=== PATIENT | male | born 1980 | race American Indian/Alaskan Native ===

== ENCOUNTER 2017-06-24 13:46 | Emergency (ER) | payer MEDICAID, OTHER ==
[2017-06-24 14:05] VITALS: BMI 36.3
[2017-06-24 14:06] VITALS: BP 110/81; PULSE 98; RESP 20; TEMP 98.6; O2SAT 100
--- NOTE | 2017-06-24 15:08 | C.PDOC ---
History Of Present Illness Patient is a 37 y/o M presenting with multiple complaints. He reports 1 month history of rib pain thats worse with inspiration, shortness of breath and L knee pain. He reports that his L knee gets "tight" after long drives. He reports that he has not visited his PMD. Denies trauma. Time Seen by Provider: 06/24/17 14:40 Chief Complaint (Nursing): Headache Past Medical History Vital Signs: Last Vital Signs Temp 98.6 F 06/24/17 14:06 Pulse 98 H 06/24/17 14:06 Resp 20 06/24/17 14:06 BP 110/81 06/24/17 14:06 Pulse Ox 100 06/24/17 15:09 - Medical History PMH: Arthritis, Asthma, Bronchitis, Sickle Cell Disease Denies: Depression - [facility] Procedures INJECT/INFUSE NEC (07/19/12) Family History: States: Unknown Family Hx - Social History Hx Tobacco Use: Yes Hx Alcohol Use: Yes (1 beer daily) Hx Substance Use: Yes - Immunization History Hx Tetanus Toxoid Vaccination: No Hx Influenza Vaccination: No Hx Pneumococcal Vaccination: No Review Of Systems Constitutional: Negative for: Fever, Chills Cardiovascular: Positive for: Chest Pain, Other (b/l rib pain) Respiratory: Positive for: Cough, SOB with Excertion, Pleuritic Pain Gastrointestinal: Negative for: Nausea, Vomiting, Abdominal Pain, Constipation Genitourinary: Negative for: Dysuria Musculoskeletal: Negative for: Neck Pain Skin: Negative for: Rash Neurological: Negative for: Weakness, Numbness, Incoordination, Confusion, Seizures, Altered Mental Status, Headache, Dizziness Physical Exam - Physical Exam Appears: Well, Non-toxic, No Acute Distress Head: Atraumatic, Normacephalic Eye(s): bilateral: Normal Inspection, PERRL, EOMI Neck: Supple Chest: Symmetrical Cardiovascular: Rhythm Regular Respiratory: Normal Breath Sounds, No Rales, No Rhonchi, No Wheezing, No Plerual Rub Gastrointestinal/Abdominal: Soft, No Tenderness, No Mass, No Distention Back: Normal Inspection, No CVA Tenderness Extremity: Normal ROM Neurological/Psych: Oriented x3, Normal Cranial Nerves, Normal Motor Gait: Steady ED Course And Treatment O2 Sat by Pulse Oximetry: 100 Medical Decision Making Medical Decision Making: Patient has multiple chronic complaints. He is requesting CT of "my entire body." He has steady gait and normal ROM of L knee- instructed to follow-up with PMD for outpatient MRI. Will get cxray, ekg, and labs. 3:27PM Nurse informed me that patient eloped Disposition - Disposition Disposition: ELOPEMENT - ER ONLY Disposition Time: 15:28 Condition: UNKNOWN Forms: [facility] (Amharic) - Clinical Impression Clinical Impression: Rib pain, Knee pain
== END 2017-06-24 14:40 | disposition left against medical advice (07) ==
LOC: C.ER 13:46
DX: R07.81 Pleurodynia (principal); M25.562 Pain in left knee

== ENCOUNTER 2019-01-16 10:38 | Emergency (ER) | payer MEDICAID, OTHER ==
[2019-01-16 10:38] VITALS: BMI 36.3
[2019-01-16 11:26] VITALS: RESP 18
[2019-01-16] MEDS ORDERED: Sodium Chloride 0.9% 1,000 ML IV ONE (12:06)
--- NOTE | 2019-01-16 12:11 | C.PDOC ---
History Of Present Illness 38 y/o male with a hx of sickle cell trait presents for evaluation of diffuse abdominal pain and diffuse lower back pain, which is intermittent for the past year. Pain worsened over the past few days. Patient notes pain is now more c oncentrated, localized to the sides of my body. Pain is worse with movement and ambulation. Otherwise he denies any fevers, chills, nausea, vomiting, changes in bowel movements, chest pain, SOB, dizziness, or UTI symptoms. Time Seen by Provider: 01/16/19 11:57 Chief Complaint (Nursing): Abdominal Pain History Per: Patient History/Exam Limitations: no limitations Onset/Duration Of Symptoms: Worse Since (last 2-3 days) Current Symptoms Are (Timing): Still Present Location Of Pain/Discomfort: Diffuse Radiation Of Pain To:: Back Quality Of Discomfort: "Pain" Past Medical History Reviewed: Historical Data, Nursing Documentation, Vital Signs Vital Signs: Last Vital Signs Temp 98.7 F 01/16/19 11:16 Pulse 88 01/16/19 11:16 Resp 18 01/16/19 11:16 BP 143/85 01/16/19 11:16 Pulse Ox 97 01/16/19 11:16 - Medical History PMH: Arthritis, Asthma, Bronchitis, Sickle Cell Disease Denies: Depression Surgical History: Hernia Repair - [facility] Procedures INJECT/INFUSE NEC (07/19/12) Family History: States: Unknown Family Hx - Social History Hx Tobacco Use: Yes Hx Alcohol Use: Yes (1 beer daily) Hx Substance Use: No - Immunization History Hx Tetanus Toxoid Vaccination: No Hx Influenza Vaccination: No Hx Pneumococcal Vaccination: No Review Of Systems Constitutional: Negative for: Fever, Chills, Sweats Eyes: Negative for: Vision Change Cardiovascular: Negative for: Chest Pain, Palpitations Respiratory: Negative for: Cough, Shortness of Breath Gastrointestinal: Positive for: Abdominal Pain (diffuse, more "on the sides"). Negative for: Nausea, Vomiting, Diarrhea, Constipation Genitourinary: Negative for: Dysuria, Hematuria Musculoskeletal: Positive for: Back Pain Skin: Negative for: Rash, Lesions Neurological: Negative for: Weakness, Numbness, Headache, Dizziness Physical Exam - Physical Exam Appears: Well, Non-toxic, No Acute Distress Skin: Normal Color, Warm, No Rash Head: Normacephalic Eye(s): bilateral: PERRL Oral Mucosa: Moist Neck: Trachea Midline, No Midline Cervical Tenderness, No Paracervical Tenderne ss, Supple Chest: Symmetrical, No Tenderness Cardiovascular: Rhythm Regular, No Murmur Respiratory: Normal Breath Sounds, No Rales, No Rhonchi, No Wheezing Gastrointestinal/Abdominal: Bowel Sounds (normal), Soft, No Tenderness, No Distention, No Guarding, No Rebound Back: No CVA Tenderness, No Vertebral Tenderness Extremity: Bilateral: Atraumatic, Normal Color And Temperature, Normal ROM Neurological/Psych: Oriented x3, Normal Speech, Normal Motor, Normal Sensation Gait: Steady ED Course And Treatment - Laboratory Results Result Diagrams: 01/16/19 12:39 01/16/19 12:39 Lab Interpretation: No Acute Changes O2 Sat by Pulse Oximetry: 97 (NC) Pulse Ox Interpretation: Normal - CT Scan/US CT A/P Other Rad Studies (CT/US): Radiology Report Reviewed CT/US Interpretation: atient Name / ID : [id number] / [id number]. Exam Date : 01/16/2019 13:54:45 ( Approved ). Study Comment : Sex / Age : M / 38Y. Creator : Mary Hess. Dictator : Lin Martini MD. Fence Rider : Field Sales Engineer : Lin Martini MD. Approver2 : Report Date : 01/16/2019 14:27:22. My Comment : . Date of service: 01/16/2019. PROCEDURE: CT Abdomen and Pelvis with contrast. HISTORY: abd pain. COMPARISON: None available. TECHNIQUE: Contrast dose: 100 mL Omnipaque 350 IV. Radiation dose: Total exam DLP = 1308.33 mGy-cm. This CT exam was performed using one or more of the following dose reduction techniques: Automated exposure control, adjustment of the mA and/or kV according to patient size, and/or use of iterative reconstruction technique. FINDINGS: LOWER THORAX: No visible consolidation, pleural effusion, or pneumothorax. LIVER: Unremarkable unenhanced appearance. GALLBLADDER AND BILE DUCTS: Unremarkable unenhanced appearance. PANCREAS: Unremarkable unenhanced appearance. SPLEEN: Splenomegaly. ADRENALS: Unremarkable unenhanced appearance. KIDNEYS AND URETERS: The kidneys enhance symmetrically. No hydronephrosis or obstructing calculus identified. 5 mm too small to characterize left renal hypodensity. VASCULATURE: No aortic aneurysm. Atherosclerotic calcifications of the aorta. BOWEL: Stomach is nondistended. Lack of oral contrast limits evaluation for bowel pathology. Bowel loops appear within normal limits of caliber without evidence of obstruction. APPENDIX: The appendix appears within normal limits of caliber. No secondary signs of acute appendicitis. PERITONEUM: No significant free fluid. No definite free air. LYMPH NODES: No bulky adenopathy identified. BLADDER: Under distended thick- walled urinary bladder. REPRODUCTIVE: Unremarkable. BONES: Degenerative changes. OTHER FINDINGS: Small bilateral fat containing inguinal hernias. Small fluid within the deep pelvis near the mouth of the left inguinal hernia. IMPRESSION: 5 mm too small to characterize left renal hypodensity. Splenomegaly. Under distended and thick-walled urinary bladder. Recommend correlation with urinalysis. Small bilateral fat containing inguinal hernias. Small fluid within the deep pelvis near the mouth of the left inguinal hernia. Progress Note: Blood work and urine sent to the lab. EKG and CT Abd/Pelvis order ed. Administered NS IV fluids, 30 mg IV Toradol, and 4 mg IV Zofran. Pt was OBS in ED for 3 hours and remained stable. On re-eval, pt is afebrile, hemodynamicly stable. Neck: Supple. CVS: (+)S1S2, reg. Lungs: CTA B/L, BS equal B/L. Abd: Benign, (-) guarding, (-) rebound. Back: (-) CVA tenderness. Blood work review and appears without acute abnormalities. CT A/P: 5 mm too small to characterize left renal hypodensit.Splenomegaly. Under distended and thick-walled urinary bladder. Recommend correlation with urinalysis. Small bilateral fat containing inguinal hernias. Small fluid within the deep pelvis near the mouth of the left inguinal hernia. Pt has clinical findings c/w diffuse abd. pain, lower back pain, nos. Pt advised. ref. to F/u with PMD in 2-3 days for re-eavl. return if any new changes. FYI: Pt left Prior discharge paper was given Disposition Counseled Patient/Family Regarding: Studies Performed, Diagnosis, Need For Followup, Rx Given - Disposition Referrals: [facility] [Outside] Disposition: HOME/ ROUTINE Disposition Time: 15:03 Condition: STABLE Additional Instructions: Encourage fluids Take pain medication as need for pain Follow up with PMD in 2-3 days for re-evaluation. Return to ED if any worsening or new changes. Prescriptions: traMADol [Ultram] 50 mg PO TID #7 tab Instructions: Low Back Pain (DC) Forms: [employer] (Bengali), Work Excuse - Clinical Impression Clinical Impression: Abdominal pain, Back pain - PA / COGNOS ANALYST / Resident Statement MD/DO has reviewed & agrees with the documentation as recorded. - Scribe Statement The provider has reviewed the documentation as recorded by the Scribcelio Valdez All medical record entries made by the Scribe were at my direction and personally dictated by me. I have reviewed the chart and agree that the record accurately reflects my personal performance of the history, physical exam, medical decision making, and the department course for this patient. I have also personally directed, reviewed, and agree with the discharge instructions and disposition.
[2019-01-16] MEDS ORDERED: Sodium Chloride 0.9% 1,000 ML ONE (12:17)
[2019-01-16 12:46] LABS: BASO # 0.1 K/uL (0.0-0.2); BASO % 1.1 % (0.0-2.0); EOS # 0.2 K/uL (0.0-0.7); EOS % 2.2 % (0.0-4.0); HEMOGLOBIN 15.1 g/dL (12.0-18.0); LYMPH # 4.9 K/uL (1.0-4.3); LYMPH % 45.3 % (20.0-40.0); MEAN CELL VOLUME 91.7 fL (80.0-94.0); MEAN CORPUSCULAR HEMOGLOBIN 32.1 pg (27.0-31.0); MEAN PLATELET VOLUME 9.6 fL (7.2-11.7); MONO # 0.6 K/uL (0.0-0.8); MONO % 5.3 % (0.0-10.0); NEUT % 46.1 % (50.0-75.0); NRBC % 2.7 % (0.0-2.0); RBC 4.71 Mil/uL (4.40-5.90); RED CELL DISTRIBUTION WIDTH 16.1 % (11.5-14.5); WHITE BLOOD COUNT 10.8 K/uL (4.8-10.8)
[2019-01-16 12:52] LABS: SQUAMOUS EPITHIAL < 1 /hpf (0-5); URINE BILIRUBIN NEGATIVE (NEGATIVE); URINE BLOOD NEGATIVE (NEGATIVE); URINE CLARITY Clear (Clear); URINE COLOR Amber (YELLOW); URINE GLUCOSE (UA) NORMAL (Normal); URINE LEUKOCYTE ESTERASE NEG Leu/uL (Negative); URINE PROTEIN NEGATIVE (NEGATIVE)
[2019-01-16 12:54] LABS: INR 1.1; PROTHROMBIN TIME 11.5 SECONDS (9.7-12.2)
[2019-01-16 12:57] LABS: ALB/GLOB RATIO 2.2 (1.0-2.1); ALBUMIN 5.1 g/dL (3.5-5.0); ALT/SGPT 37 U/L (21-72); AMYLASE 72 U/L (30-110); AST/SGOT 32 U/L (17-59); BLOOD UREA NITROGEN 15 mg/dL (9-20); CALCIUM 9.5 mg/dl (8.6-10.4); GFR NON-AFRICAN AMERICAN > 60; LIPASE 48 U/L (23-300)
[2019-01-16] MEDS ORDERED: Iohexol 350mg/ml 100 ML ONE (14:17)
[2019-01-16 14:47] VITALS: BP 160/100; PULSE 77; TEMP 98.4
--- NOTE | 2019-01-16 14:48 | CT ---
Date of service: 01/16/2019 PROCEDURE: CT Abdomen and Pelvis with contrast HISTORY: abd pain COMPARISON: None available. TECHNIQUE: Contrast dose: 100 mL Omnipaque 350 IV Radiation dose: Total exam DLP = 1308.33 mGy-cm. This CT exam was performed using one or more of the following dose reduction techniques: Automated exposure control, adjustment of the mA and/or kV according to patient size, and/or use of iterative reconstruction technique. FINDINGS: LOWER THORAX: No visible consolidation, pleural effusion, or pneumothorax. LIVER: Unremarkable unenhanced appearance. GALLBLADDER AND BILE DUCTS: Unremarkable unenhanced appearance. PANCREAS: Unremarkable unenhanced appearance. SPLEEN: Splenomegaly. ADRENALS: Unremarkable unenhanced appearance. KIDNEYS AND URETERS: The kidneys enhance symmetrically. No hydronephrosis or obstructing calculus identified. 5 mm too small to characterize left renal hypodensity. VASCULATURE: No aortic aneurysm. Atherosclerotic calcifications of the aorta. BOWEL: Stomach is nondistended. Lack of oral contrast limits evaluation for bowel pathology. Bowel loops appear within normal limits of caliber without evidence of obstruction. APPENDIX: The appendix appears within normal limits of caliber. No secondary signs of acute appendicitis. PERITONEUM: No significant free fluid. No definite free air. LYMPH NODES: No bulky adenopathy identified. BLADDER: Under distended thick-walled urinary bladder. REPRODUCTIVE: Unremarkable. BONES: Degenerative changes. OTHER FINDINGS: Small bilateral fat containing inguinal hernias. Small fluid within the deep pelvis near the mouth of the left inguinal hernia. IMPRESSION: 5 mm too small to characterize left renal hypodensity. Splenomegaly. Under distended and thick-walled urinary bladder. Recommend correlation with urinalysis. Small bilateral fat containing inguinal hernias. Small fluid within the deep pelvis near the mouth of the left inguinal hernia.
[2019-01-16 15:05] VITALS: O2SAT 97
[2019-01-16 15:32] LABS: SQUAMOUS EPITHIAL < 1 /hpf (0-5); URINE BILIRUBIN NEGATIVE (NEGATIVE); URINE CLARITY Clear (Clear); URINE COLOR Amber (YELLOW); URINE GLUCOSE (UA) NORMAL (Normal); URINE LEUKOCYTE ESTERASE NEG Leu/uL (Negative); URINE PROTEIN NEGATIVE (NEGATIVE)
[2019-01-16 15:34] LABS: URINE BLOOD TRACE (NEGATIVE)
--- NOTE | 2019-01-18 21:26 | CARD ---
APPROVED REPORT Date of service: 01/16/2019 EKG Measurement Heart [id number] <Conclusion> Normal sinus rhythm Nonspecific T wave abnormality Abnormal ECG
== END 2019-01-16 15:10 | disposition home or self-care (01) ==
LOC: C.ER 10:38
DX: R10.9 Unspecified abdominal pain (principal); M54.9 Dorsalgia, unspecified
CPT/HCPCS: 74177; 80053; 81001; 82150; 83690; 84484; 85025; 85044; 85610; 85730; 93005; 96361; 96374; 96375; 99285; J1885; J2405; J7030; Q9967